=== PATIENT | male | born 1985 | race Caucasian/White ===

== ENCOUNTER 2016-08-04 15:08 | Emergency (ER) | payer OTHER, SELFPAY ==
--- NOTE | 2016-08-04 15:32 | EDDOCDS ---
Physician Documentation [facility] Name: Fidel Ellis Age: 31 yrs Sex: Male : 1985 Arrival Date: 08/04/2016 Time: 15:08 Bed TR8 Private MD: Cassius Cao M Disposition: 08/04/16 15:24 Discharged to Home/Self Care. Impression: Acute bronchitis. - Condition is Stable. - Discharge Instructions: Acute Bronchitis. - Prescriptions for acetaminophen 500 mg Oral capsule - take 1 capsule by ORAL route every 4-6 hours as needed not to exceed 8 capsules per 24hrs; 30 capsule. Prednisone 20 mg Oral Tablet - take 1 tablet by ORAL route once daily for 5 days; 5 tablet. benzonatate 200 mg Oral Capsule - take 1 capsule by ORAL route 3 times per day As needed; 30 capsule. - Work Release Form - 3 day, Medication Reconciliation form. - Follow up: Emergency Department; When: As needed; Reason: Worsening of conditions. Follow up: Cassius Cao; When: Call to arrange an appointment; Reason: Wound/Symptom Recheck, Recheck today's complaints, Worsening of conditions, Continuance of care. - Problem is new. - Symptoms are unchanged. Historical: - Allergies: Aspirin; - Home Meds: 1. ibuprofen 800 mg Oral tab 1 tab 3 times per day as needed (Last dose: 08/04/2016 08:00) - PMHx: ADD; - PSHx: left foot and ankle surgery; - Social history: Smoking status: Patient states was never smoker of tobacco. No barriers to communication noted, The patient speaks fluent [place]rugu[place], Speaks appropriately for age. - Family history: Not pertinent. - : The pt / caregiver states he / she is not on anticoagulants. Home medication list is obtained from the patient. - Exposure Risk Screening:: None identified. Vital Signs: 08/04 15:09 BP 136 / 64; Pulse 84; Resp 18; Temp 99.4(O); Pulse Ox 97% on R/A; Weight 102.06 kg / elp 225 lbs (R); Height 5 ft. 10 in. (177.80 cm) (R); 15:09 Body Mass Index 32.28 (102.06 kg, 177.80 cm) elp Signatures: Enrique Mae RN RN mlb1 Lou Cantor,RN RN rs3 Yuko, Chan, PA-C PA-C cc10 MTDD
--- NOTE | 2016-08-04 15:32 | EDDOCDS ---
Nurse's Notes [facility] Name: Fidel Ellis Age: 31 yrs Sex: Male : 1985 Arrival Date: 08/04/2016 Time: 15:08 Bed TR8 Private MD: Cassius Cao M Diagnosis: Acute bronchitis Presentation: 08/04 15:10 Presenting complaint: Patient states: Fever and cough began last night. Adult Sepsis mlb1 Screening: The patient does not have new or worsening altered mentation. Patient's respiratory rate is less than 22. Systolic blood pressure is greater than 100. Patient has a qSOFA score of 0- Negative Sepsis Screen. Suicide/Homicide risk assessment- the patient denies having any suicidal and/or homicidal ideations and does not present with any other emotional, behavioral or mental health complaints. Status: Patient is not a facility service manager or dependent. Transition of care: patient was not received from another setting of care. 15:10 Acuity: TAJ Level 4 mlb1 15:10 Method Of Arrival: Walkin/Carried/Asstd mlb1 Triage Assessment: 15:11 General: Appears in no apparent distress, comfortable, Behavior is appropriate for age, mlb1 cooperative. Pain: Denies pain. HIV screening NA for this visit Offered previously. Respiratory: Reports cough that is non-productive. Historical: - Allergies: Aspirin; - Home Meds: 1. ibuprofen 800 mg Oral tab 1 tab 3 times per day as needed (Last dose: 08/04/2016 08:00) - PMHx: ADD; - PSHx: left foot and ankle surgery; - Social history: Smoking status: Patient states was never smoker of tobacco. No barriers to communication noted, The patient speaks fluent [place]aguayan, Speaks appropriately for age. - Family history: Not pertinent. - : The pt / caregiver states he / she is not on anticoagulants. Home medication list is obtained from the patient. - Exposure Risk Screening:: None identified. Screenin:30 Screening information is obtained from the patient. Fall risk: No risks identified. rs3 Assistance ADL's: requires no assistance with activities of daily living. Abuse/DV Screen: The patient / caregiver reports he/she is: not in a situation that causes fear, pain or injury. Nutritional screening: No deficits noted. Advance Directives: Currently, there is no health care proxy. There is no active DNR order. home support is adequate. Assessment: 15:30 General: Appears in no apparent distress, Behavior is appropriate for age, cooperative. rs3 Pain: Denies pain. Neurological: Level of Consciousness is awake, alert. EENT: Reports nasal congestion nasal discharge that is watery. Respiratory: Airway is patent Respiratory effort is even, unlabored, Respiratory pattern is regular, symmetrical. Derm: Skin is pink, warm & dry. Vital Signs: 15:09 BP 136 / 64; Pulse 84; Resp 18; Temp 99.4(O); Pulse Ox 97% on R/A; Weight 102.06 kg elp (R); Height 5 ft. 10 in. (177.80 cm) (R); 15:09 Body Mass Index 32.28 (102.06 kg, 177.80 cm) elp Vitals: 15:09 Log In Time: August 04, 2016 at 15:07. elp ED Course: 15:09 Patient visited by Amy Del Valle PCA. elp 15:09 Cassius Cao is Private Physician. elp 15:09 Patient moved to Waiting elp 15:09 Patient moved to Pre RCE elp 15:10 Patient visited by Amy Del Valle PCA. elp 15:10 Patient visited by Enrique Mae, BONNIE. mlb1 15:11 Triage Initiated mlb1 15:12 Patient visited by Enrique Mae, BONNIE. mlb1 15:12 Patient moved to Triage 1 mlb1 15:14 Chan Huntley PA-C is [facility]. cc10 15:14 Radha Arevalo MD is Attending Physician. cc10 15:18 Patient visited by Chan Huntley PA-C. cc10 15:18 Patient visited by Chan Huntley PA-C. cc10 15:23 Cassius Cao is Referral Physician. cc10 15:29 Patient moved to TR8 rs3 15:31 The patient / caregiver is instructed regarding the plan of care and ED course. rs3 15:31 No IV's were initiated during this patient's visit. No procedures done that require rs3 assistance. Order Results: There are currently no results for this order. Outcome: 15:24 Discharge ordered by Provider. cc10 15:30 Discharge Assessment: patient administered narcotics - no. The following High Risk rs3 Discharge criteria are identified: None. Discharged to home with family. Condition: stable. Discharge instructions given to patient, Instructed on discharge instructions, follow up and referral plans. medication usage, Demonstrated understanding of instructions, medications, Pt was receptive of discharge instructions/ teaching. Prescriptions given X 3. No special radiology studies were completed. Property :Personal belongings accompany Pt. 15:31 Patient left the ED. rs3 Signatures: Enrique Mae RN RN mlb1 Lou Cantor RN RN rs3 Amy Del Valle, STORAGE BATTERY CHARGER STORAGE BATTERY CHARGER elp Chan Huntley, PA-C PA-C cc10 MTDD
--- NOTE | 2016-08-06 16:32 | EDDOCDS ---
Nurse's Notes [facility] Name: Fidel Ellis Age: 31 yrs Sex: Male : 1985 Arrival Date: 08/04/2016 Time: 15:08 Bed TR8 Private MD: Cassius Cao M Diagnosis: Acute bronchitis Presentation: 08/04 15:10 Presenting complaint: Patient states: Fever and cough began last night. Adult Sepsis mlb1 Screening: The patient does not have new or worsening altered mentation. Patient's respiratory rate is less than 22. Systolic blood pressure is greater than 100. Patient has a qSOFA score of 0- Negative Sepsis Screen. Suicide/Homicide risk assessment- the patient denies having any suicidal and/or homicidal ideations and does not present with any other emotional, behavioral or mental health complaints. Status: Patient is not a client service manager or dependent. Transition of care: patient was not received from another setting of care. 15:10 Acuity: TAJ Level 4 mlb1 15:10 Method Of Arrival: Walkin/Carried/Asstd mlb1 Triage Assessment: 15:11 General: Appears in no apparent distress, comfortable, Behavior is appropriate for age, mlb1 cooperative. Pain: Denies pain. HIV screening NA for this visit Offered previously. Respiratory: Reports cough that is non-productive. Historical: - Allergies: Aspirin; - Home Meds: 1. ibuprofen 800 mg Oral tab 1 tab 3 times per day as needed (Last dose: 08/04/2016 08:00) - PMHx: ADD; - PSHx: left foot and ankle surgery; - Social history: Smoking status: Patient states was never smoker of tobacco. No barriers to communication noted, The patient speaks fluent [place] Verde[place], Speaks appropriately for age. - Family history: Not pertinent. - : The pt / caregiver states he / she is not on anticoagulants. Home medication list is obtained from the patient. - Exposure Risk Screening:: None identified. Screenin:30 Screening information is obtained from the patient. Fall risk: No risks identified. rs3 Assistance ADL's: requires no assistance with activities of daily living. Abuse/DV Screen: The patient / caregiver reports he/she is: not in a situation that causes fear, pain or injury. Nutritional screening: No deficits noted. Advance Directives: Currently, there is no health care proxy. There is no active DNR order. home support is adequate. Assessment: 15:30 General: Appears in no apparent distress, Behavior is appropriate for age, cooperative. rs3 Pain: Denies pain. Neurological: Level of Consciousness is awake, alert. EENT: Reports nasal congestion nasal discharge that is watery. Respiratory: Airway is patent Respiratory effort is even, unlabored, Respiratory pattern is regular, symmetrical. Derm: Skin is pink, warm & dry. Vital Signs: 15:09 BP 136 / 64; Pulse 84; Resp 18; Temp 99.4(O); Pulse Ox 97% on R/A; Weight 102.06 kg elp (R); Height 5 ft. 10 in. (177.80 cm) (R); 15:09 Body Mass Index 32.28 (102.06 kg, 177.80 cm) el Vitals: 15:09 Log In Time: August 04, 2016 at 15:07. elp ED Course: 15:09 Patient visited by Amy Del Valle PCA. elp 15:09 Cassius Cao is Private Physician. elp 15:09 Patient moved to Waiting elp 15:09 Patient moved to Pre RCE elp 15:10 Patient visited by Amy Del Valle PCA. elp 15:10 Patient visited by Enrique Mae, BONNIE. mlb1 15:11 Triage Initiated mlb1 15:12 Patient visited by Enrique Mae, BONNIE. mlb1 15:12 Patient moved to Triage 1 mlb1 15:14 [facility] cc[facility] 15:14 Radah Arevalo MD is Attending Physician. cc10 15:18 Patient visited by Chan Huntley PA-C. cc10 15:18 Patient visited by Chan Huntley PA-C. cc10 15:23 Cassius Cao is Referral Physician. cc10 15:29 Patient moved to TR8 rs3 15:31 The patient / caregiver is instructed regarding the plan of care and ED course. rs3 15:31 No IV's were initiated during this patient's visit. No procedures done that require rs3 assistance. 21:58 T-Sheet-- Draft Copy was scanned into [employer] and attached to record. klr Order Results: There are currently no results for this order. Outcome: 15:24 Discharge ordered by Provider. cc10 15:30 Discharge Assessment: patient administered narcotics - no. The following High Risk rs3 Discharge criteria are identified: None. Discharged to home with family. Condition: stable. Discharge instructions given to patient, Instructed on discharge instructions, follow up and referral plans. medication usage, Demonstrated understanding of instructions, medications, Pt was receptive of discharge instructions/ teaching. Prescriptions given X 3. No special radiology studies were completed. Property :Personal belongings accompany Pt. 15:31 Patient left the ED. rs3 Signatures: Enrique Mae RN RN mlb1 Lou CantorRN RN rs3 Ivon, Amy, ORGANIC SEARCH LEAD ORGANIC SEARCH LEAD elp Chan Huntley PA-C PA-C cc10 Ame Gatica Chart Complete MTDMisa
--- NOTE | 2016-08-06 16:32 | EDDOCDS ---
Physician Documentation [facility] Name: iFdel Ellis Age: 31 yrs Sex: Male : 1985 Arrival Date: 08/04/2016 Time: 15:08 Bed TR8 Private MD: Cassius Cao M Disposition: 08/04/16 15:24 Discharged to Home/Self Care. Impression: Acute bronchitis. - Condition is Stable. - Discharge Instructions: Acute Bronchitis. - Prescriptions for acetaminophen 500 mg Oral capsule - take 1 capsule by ORAL route every 4-6 hours as needed not to exceed 8 capsules per 24hrs; 30 capsule. Prednisone 20 mg Oral Tablet - take 1 tablet by ORAL route once daily for 5 days; 5 tablet. benzonatate 200 mg Oral Capsule - take 1 capsule by ORAL route 3 times per day As needed; 30 capsule. - Work Release Form - 3 day, Medication Reconciliation form. - Follow up: Emergency Department; When: As needed; Reason: Worsening of conditions. Follow up: Cassius Cao; When: Call to arrange an appointment; Reason: Wound/Symptom Recheck, Recheck today's complaints, Worsening of conditions, Continuance of care. - Problem is new. - Symptoms are unchanged. Historical: - Allergies: Aspirin; - Home Meds: 1. ibuprofen 800 mg Oral tab 1 tab 3 times per day as needed (Last dose: 08/04/2016 08:00) - PMHx: ADD; - PSHx: left foot and ankle surgery; - Social history: Smoking status: Patient states was never smoker of tobacco. No barriers to communication noted, The patient speaks fluent [place], Speaks appropriately for age. - Family history: Not pertinent. - : The pt / caregiver states he / she is not on anticoagulants. Home medication list is obtained from the patient. - Exposure Risk Screening:: None identified. Vital Signs: 08/04 15:09 BP 136 / 64; Pulse 84; Resp 18; Temp 99.4(O); Pulse Ox 97% on R/A; Weight 102.06 kg / elp 225 lbs (R); Height 5 ft. 10 in. (177.80 cm) (R); 15:09 Body Mass Index 32.28 (102.06 kg, 177.80 cm) elp MDM: 21:58 T-Sheet-- Draft Copy was scanned into [employer] and attached to record. klr Signatures: Enrique Mae RN RN mlb1 Lou CantorRN RN rs3 Chan Huntley PA-C PA-C cc10 Ame Gatica The chart was reviewed and I authenticate all verbal orders and agree with the evaluation and treatment provided.Attachments: 21:58 T-Sheet-- Draft Copy klr Chart Complete MTDD
--- NOTE | 2016-08-06 16:32 | EDDOCDS ---
Physician Documentation [facility] Name: Fidel Ellis Age: 31 yrs Sex: Male : 1985 Arrival Date: 08/04/2016 Time: 15:08 Bed TR8 Private MD: Cassius Cao M Disposition: 08/04/16 15:24 Discharged to Home/Self Care. Impression: Acute bronchitis. - Condition is Stable. - Discharge Instructions: Acute Bronchitis. - Prescriptions for acetaminophen 500 mg Oral capsule - take 1 capsule by ORAL route every 4-6 hours as needed not to exceed 8 capsules per 24hrs; 30 capsule. Prednisone 20 mg Oral Tablet - take 1 tablet by ORAL route once daily for 5 days; 5 tablet. benzonatate 200 mg Oral Capsule - take 1 capsule by ORAL route 3 times per day As needed; 30 capsule. - Work Release Form - 3 day, Medication Reconciliation form. - Follow up: Emergency Department; When: As needed; Reason: Worsening of conditions. Follow up: Cassius Cao; When: Call to arrange an appointment; Reason: Wound/Symptom Recheck, Recheck today's complaints, Worsening of conditions, Continuance of care. - Problem is new. - Symptoms are unchanged. Historical: - Allergies: Aspirin; - Home Meds: 1. ibuprofen 800 mg Oral tab 1 tab 3 times per day as needed (Last dose: 08/04/2016 08:00) - PMHx: ADD; - PSHx: left foot and ankle surgery; - Social history: Smoking status: Patient states was never smoker of tobacco. No barriers to communication noted, The patient speaks fluent Fijian, Speaks appropriately for age. - Family history: Not pertinent. - : The pt / caregiver states he / she is not on anticoagulants. Home medication list is obtained from the patient. - Exposure Risk Screening:: None identified. Vital Signs: 08/04 15:09 BP 136 / 64; Pulse 84; Resp 18; Temp 99.4(O); Pulse Ox 97% on R/A; Weight 102.06 kg / elp 225 lbs (R); Height 5 ft. 10 in. (177.80 cm) (R); 15:09 Body Mass Index 32.28 (102.06 kg, 177.80 cm) elp MDM: 21:58 T-Sheet-- Draft Copy was scanned into [employer] and attached to record. klr Signatures: Enrique Mae RN RN mlb1 Lou CantorRN RN rs3 Chan Huntley PA-C PA-C cc10 Ame Gatica The chart was reviewed and I authenticate all verbal orders and agree with the evaluation and treatment provided.Attachments: 21:58 T-Sheet-- Draft Copy klr Chart Complete MTDD
== END 2016-08-04 15:31 | disposition home or self-care (01) ==
LOC: M ED 15:08
DX: J20.9 Acute bronchitis, unspecified (principal); B34.9 Viral infection, unspecified; F90.9 Attention-deficit hyperactivity disorder, unspecified type; Z88.6 Allergy status to analgesic agent

== ENCOUNTER 2016-11-17 20:10 | Emergency (ER) | payer OTHER, SELFPAY ==
[~2016-11-17] VITALS: Ht 177.8 cm; Wt 102.1 kg
[2016-11-17] MEDS ORDERED: WELL100T2 PO (20:24)
[2016-11-17] MEDS ORDERED: ADACEL/BOOSTRIX VACCINE (DIPHTH/PERTUSS/ACELL/TETANUS)0.5ML SYR (90715) IM ONE (21:30)
[2016-11-17 21:48] VITALS: BP 134/71
[2016-11-17] MEDS ORDERED: AUGM875T27 PO (21:50)
[2016-11-17] MEDS ORDERED: AUGMENTIN 875 MG TAB PO ONE (22:00)
== END 2016-11-17 22:00 | disposition home or self-care (01) ==
LOC: M ED 21:34
DX: S61.412A Laceration without foreign body of left hand, initial encounter (principal); W25.XXXA Contact with sharp glass, initial encounter; Y92.89 Other specified places as the place of occurrence of the external cause; Y93.89 Activity, other specified; Y99.0 Civilian activity done for income or pay; Z79.899 Other long term (current) drug therapy; Z88.6 Allergy status to analgesic agent

== ENCOUNTER → 2016-11-30 | Outpatient (CLI) | payer OTHER ==
[~2016-11-30] MED LIST: AUGM875T27 PO; WELL100T2 PO
[2016-11-30 11:11] LABS: % NORMAL FORMS < 4 % (>=4); IMMOTILITY 96 %; NON PROGRESSIVE MOTILITY (c) 4 %; PROGRESSIVE MOTILITY (a) 0 % (>=32); SPERM# 15.5 M/Ejac (33-46); TOTAL MOTILITY 4 % (>=40); TOTAL PROGRESSIVE SPERM 0 M/Ejac.
[2016-11-30 11:13] LABS: TOTAL FUNCTIONAL 0 M/Ejac.
[2016-11-30 12:40] LABS: ESTRADIOL 20.6 PG/ML (<39.8); FOLLICLE STIMULATING HORMONE 5.2 mIU/mL (1.4-18.1); LUTEINIZING HORMONE 4.8 mIU/mL (1.5-9.3); PROLACTIN 12.3 NG/ML (2.1-17.7)
== END ==
LOC: M LAB 08:11
PROVIDERS: ATTEND Nurse Practitioner Women's Health
DX: N46.9 Male infertility, unspecified (principal)

== ENCOUNTER → 2016-12-13 | Outpatient (CLI) | payer OTHER ==
--- NOTE | 2016-12-14 01:29 | REP ---
Clinical: Pain . Technique: AP, lateral, bilateral oblique views left ankle . Findings: No acute fracture or dislocation. Skeletal structures and joint spaces are intact and normal. Ankle mortise appears stable. No subcutaneous emphysema or radiodense foreign body. Impression: Normal left ankle radiograph series. Signed by Franklin Gray MD 12/14/2016 01:21 A
--- NOTE | 2016-12-14 01:34 | REP ---
Clinical: Pain. Technique: AP, lateral, bilateral oblique sunrise views of the left knee. Findings: Degenerative changes include increased sclerosis to the medial tibial plateau with mild joint space narrowing at and associated marginal osteophyte/spurring. Remainder examination appears normal for age. No acute fracture dislocation. No effusion. Impression: Early medial compartment arthritic degenerative changes. Signed by Franklin Gray MD 12/14/2016 01:25 A
== END ==
LOC: M SMT 14:27
PROVIDERS: ATTEND Physician Assistant
DX: M25.572 Pain in left ankle and joints of left foot (principal); M25.562 Pain in left knee

== ENCOUNTER 2017-01-04 10:28 | Emergency (ER) | payer OTHER ==
[~2017-01-04] VITALS: Ht 177.8 cm; Wt 101.7 kg
[2017-01-04 10:28] VITALS: BP 127/67
[~2017-01-04 10:28] MED LIST changes: -AUGM875T27 PO; +AUGM875T28 PO
[2017-01-04] MEDS ORDERED: BUPR15TA PO (10:35)
[2017-01-04] MEDS ORDERED: NAPROXEN 250 MG TAB PO ONE (11:00)
[2017-01-04] MEDS ORDERED: NAPR500T PO (12:00)
[2017-01-04] MEDS ORDERED: CYCL10TA PO (12:00)
--- NOTE | 2017-01-04 12:10 | REP ---
LUMBOSACRAL SPINE: Five views of lumbosacral spine are performed. There is no compression fracture or malalignment with normal lumbar lordosis. There is no spondylolysis or spondylolisthesis. There is mild spurring at L3. There is mild disc space narrowing at L2-3 and L5-S1 with sclerosis at the posterior facet joints of L4-5 and L5-S1. The posterior elements are intact. IMPRESSION: Mild degenerative changes without fracture or dislocation. Signed by Ahmet Fowler MD 01/04/2017 05:23 P
--- NOTE | 2017-01-04 12:11 | REP ---
RIGHT SHOULDER: Three views of the right shoulder are performed and demonstrate no fracture, dislocation, or intrinsic bone disease. Oval well defined sclerotic area in the right second rib is consistent with a bone island. IMPRESSION: No significant abnormality. Signed by Ahmet Fowler MD 01/04/2017 05:24 P
== END 2017-01-04 12:15 | disposition home or self-care (01) ==
LOC: M ED 10:28
DX: M25.511 Pain in right shoulder (principal); M54.5 Low back pain; M51.37 Other intervertebral disc degeneration, lumbosacral region; Z79.899 Other long term (current) drug therapy; Z88.6 Allergy status to analgesic agent

== ENCOUNTER → 2017-02-14 | Outpatient (CLI) | payer OTHER ==
[~2017-02-14] MED LIST changes: +BUPR15TA PO; +CYCL10TA PO; +NAPR500T PO
--- NOTE | 2017-02-19 14:15 | SLEEPHOME ---
DATE OF PROCEDURE: 02/14/2017 REFERRING PHYSICIAN: VIDA Matos INTERPRETATION: Diagnostic home sleep testing was performed due to concern for the obstructive sleep apnea syndrome in this patient with a history of excessive somnolence. For testing a NOX-T3 respiratory monitoring device was used. Continuous record was made of pulse, oxygen saturation, air flow, chest and abdominal strain and body position. 10 hours and 59 minutes of data were reviewed. Of these 6 hours and 57 minutes were marked as time in bed. During the interval marked time in bed, there were 277 respiratory events identified of 10 seconds in duration or greater for a respiratory event index of 39.8. The events were primarily obstructive based on pulse rate of 60, pulse rate range 47-98. Baseline saturation 93%. Lowest oxygen saturation 70%. Testing was performed in both supine and non-supine positions. IMPRESSION: Abnormal home sleep testing with repetitive respiratory events and oxygen desaturations to 70% with a respiratory index of 39.8 is consistent with severe obstructive sleep apnea syndrome. RECOMMENDATION: The patient should be encouraged to undergo formal sleep evaluation and in laboratory pressure titration.
== END ==
LOC: M SLEEP HO 11:26
PROVIDERS: ATTEND Nurse Practitioner Adult Health
DX: G47.30 Sleep apnea, unspecified (principal)

== ENCOUNTER → 2017-03-08 | Outpatient (CLI) | payer OTHER | LOC: M LAB 09:28 | PROVIDERS: ATTEND Urology | DX: N46.9 Male infertility, unspecified (principal) ==

== ENCOUNTER → 2017-07-05 | Outpatient (REF) | payer OTHER ==
[2017-07-05 20:27] LABS: HEPATITIS B SURFACE ANTIGEN NEGATIVE (NEGATIVE)
[2017-07-05 20:54] LABS: HEPATITIS B CORE ANTIBODY IGM NEGATIVE (NEGATIVE)
[2017-07-05 20:54] LABS: HEPATITIS C VIRUS ABY INDEX 0.1 INDEX (<0.8)
[2017-07-05 20:55] LABS: HIV 1&2 SCREEN CENTAUR NEGATIVE (NEGATIVE)
[2017-07-05 20:56] LABS: HEPATITIS A ANTIBODY IGM NEGATIVE (NEGATIVE)
[2017-07-05 21:48] LABS: CHLAMYDIA DNA AMPLIFICATION NEGATIVE (NEGATIVE); GC DNA AMPLIFICATION NEGATIVE (NEGATIVE)
== END ==
LOC: M SFHCPLAZ 15:13
DX: Z72.51 High risk heterosexual behavior (principal); F90.9 Attention-deficit hyperactivity disorder, unspecified type

== ENCOUNTER → 2017-07-11 | Outpatient (REF) | payer OTHER ==
[2017-07-11 10:36] LABS: #IMMOTILE SPERM COUNTED 14; #MOTILE SPERM COUNTED 2; % MOTILITY 13 (> 40%); SEMEN APPEARANCE OPAQUE (OPAQUE); SEMEN VISCOSITY LIQUID (LIQUID); SEMEN VOLUME 1.3 ML (4.0-5.0); SEMEN WBC >1 M/ml (<=1 M/ml); SEMEN pH 7.5 (7.0-8.0); SPERM ABNORMAL FORMS WBC'S NOTED; SPERM CONCENTRATION 8 M/ml (> 15 M/ml); TOTAL # SPERM COUNTED 16 M/ml
== END ==
LOC: M SMT 10:29
DX: N46.8 Other male infertility (principal)

== ENCOUNTER → 2017-08-09 | Outpatient (CLI) | payer OTHER | LOC: M RAD 14:50 | DX: R06.09 Other forms of dyspnea (principal) | CPT/HCPCS: 71046 ==

== ENCOUNTER → 2017-09-03 | Outpatient (CLI) | payer OTHER | LOC: M CARPUL 08:37 | DX: R06.09 Other forms of dyspnea (principal) ==

== ENCOUNTER → 2017-09-09 | Outpatient (CLI) | payer OTHER | LOC: M RAD 08:59 | DX: M25.521 Pain in right elbow (principal) | CPT/HCPCS: 73080 ==

== ENCOUNTER → 2017-09-13 | Outpatient (REF) | payer OTHER ==
[2017-09-13 14:29] LABS: CHLAMYDIA DNA AMPLIFICATION NEGATIVE (NEGATIVE); GC DNA AMPLIFICATION NEGATIVE (NEGATIVE)
== END ==
LOC: M SFHCPLAZ 11:33
DX: Z20.2 Contact with and (suspected) exposure to infections with a predominantly sexual mode of transmission (principal)

== ENCOUNTER 2018-01-08 19:58 | Emergency (ER) | payer OTHER | END 2018-01-09 01:45 | disposition home or self-care (01) | LOC: M ED 19:58 | DX: R14.2 Eructation (principal); F33.9 Major depressive disorder, recurrent, unspecified; F90.9 Attention-deficit hyperactivity disorder, unspecified type; Z79.899 Other long term (current) drug therapy; Z88.8 Allergy status to other drugs, medicaments and biological substances | CPT/HCPCS: 99283 ==

== ENCOUNTER 2018-03-30 14:48 | Emergency (ER) | payer MEDICAID, SELFPAY, OTHER ==
[2018-03-30] MEDS: GI COCKTAIL 50ML BTL(HYOSCYAMINE/MAALOX/LIDOCAINE VISCOUS)(1:3:1) PO ×3 (15:46)
[2018-03-30] MEDS: PANTOPRAZOLE 40MG INJ (PROTONIX) (C9113) IV ×3 (15:46)
[2018-03-30] MEDS: NS 1,000 ML IV ×3 (15:47)
[2018-03-30] MEDS: ONDANSETRON 4MG/2ML VIAL (J2405) IV ×3 (15:50)
[2018-03-30] MEDS ORDERED: ONDANSETRON 4MG/2ML VIAL (J2405) As Ordered ×3 (15:50)
[2018-03-30 15:57] LABS: BASO # 0.1 10^3/uL (0.0-0.2); BASO % 0.6 % (0.0-1.0); EOS # 0.3 10^3/uL (0.0-0.50); EOS % 2.9 % (0.0-3.0); HEMOGLOBIN 14.5 g/dl (13.5-17.5); IMMATURE GRANULOCYTE % 0.3 % (0-3.0); LYMPH % 19.9 % (24.0-44.0); MEAN CORPUSCULAR HEMOGLOBIN 27.5 pg (27.0-33.0); MEAN CORPUSCULAR HGB CONC 33.7 g/dl (32.0-36.5); MEAN CORPUSCULAR VOLUME 81.6 fl (80.0-96.0); MONO # 0.8 10^3/uL (0.0-0.8); MONO % 7.9 % (0.0-5.0); NEUTROPHILS # 6.8 10^3/uL (1.8-7.7); NEUTROPHILS % 68.4 % (36.0-66.0); PLATELET COUNT, AUTOMATED 243 10^3/uL (150-450); RED BLOOD COUNT 5.27 10^6/uL (4.30-6.10); RED CELL DISTRIBUTION WIDTH 12.8 % (11.5-14.5); WHITE BLOOD COUNT 9.9 10^3/uL (4.0-10.0)
[2018-03-30 16:00] LABS: APPEARANCE, URINE CLEAR (CLEAR); BACTERIA, URINE AUTO NEGATIVE (NEGATIVE); BILIRUBIN, URINE AUTO NEGATIVE (NEGATIVE); BLOOD, URINE BLOOD NEGATIVE (NEGATIVE); COLOR, URINE YELLOW (YELLOW); GLUCOSE, URINE (UA) AUTO NEGATIVE (NEGATIVE); KETONE, URINE AUTO NEGATIVE (NEGATIVE); LEUKOCYTE ESTERASE, URINE AUTO NEGATIVE (NEGATIVE); MUCUS, URINE SMALL (NEGATIVE); NITRITE, URINE AUTO NEGATIVE (NEGATIVE); PROTEIN, URINE AUTO NEGATIVE (NEGATIVE); RBC, URINE AUTO 1 /HPF (0-3); SPECIFIC GRAVITY URINE AUTO 1.014 (1.002-1.035); SQUAMOUS EPITHELIAL CELL UR AU 0 /HPF (0-6); UROBILINOGEN, URINE AUTO 0.2 mg/dL (0.0-2.0); WBC, URINE AUTO 0 /HPF (0-3)
[2018-03-30 16:24] LABS: ALKALINE PHOSPHATASE 93 U/L (45-117); ALT/SGPT 54 U/L (12-78); ANION GAP 8 MEQ/L (8-16); AST/SGOT 30 U/L (7-37); BILIRUBIN,TOTAL 0.4 MG/DL (0.2-1.0); BLOOD UREA NITROGEN 15 MG/DL (7-18); CARBON DIOXIDE LEVEL 28 MEQ/L (21-32); CHLORIDE LEVEL 104 MEQ/L (98-107); CREATININE FOR GFR 0.81 MG/DL (0.70-1.30); GLOMERULAR FILTRATION RATE > 60.0 (>60); GLUCOSE, FASTING 88 MG/DL (70-100); LIPASE 191 U/L (73-393); POTASSIUM SERUM 3.8 MEQ/L (3.5-5.1); SODIUM LEVEL 140 MEQ/L (136-145)
[2018-03-30] MEDS ORDERED: ISOVUE-370 76% 100ML VIAL (Q9967) As Ordered ×3 (17:01)
== END 2018-03-30 18:29 | disposition home or self-care (01) ==
LOC: M ED 14:48
DX: K29.70 Gastritis, unspecified, without bleeding (principal); R14.2 Eructation; K76.0 Fatty (change of) liver, not elsewhere classified; R11.0 Nausea; Z88.6 Allergy status to analgesic agent
CPT/HCPCS: C9113

== ENCOUNTER 2018-05-25 17:28 | Emergency (ER) | payer OTHER, MEDICAID, SELFPAY ==
[2018-05-25] MEDS: IPRATROPIUM 0.5MG/ALBUTEROL 2.5MG INH SOL UD 3ML (DUONEB)(J7620) NEB (17:45)
[2018-05-25 18:01] LABS: VENOUS BASE EXCESS -4.6 (-2.0-2.0); VENOUS HCO3 19.7 MEQ/L (23.0-27.0); VENOUS O2 SATURATION 78.8 % (60.0-80.0); VENOUS PARTIAL PRESSURE CO2 34.2 mmHg (38.0-50.0); VENOUS PARTIAL PRESSURE O2 44.5 mmHg (30.0-50.0); VENOUS PH 7.379 UNITS (7.330-7.430); VENOUS STANDARD HCO3 20.3 MEQ/L; VENOUS TOTAL CO2 20.8 MEQ/L (24.0-28.0)
[2018-05-25 18:03] LABS: BASO # 0.1 10^3/uL (0.0-0.2); BASO % 0.5 % (0.0-1.0); EOS # 0.4 10^3/uL (0.0-0.50); EOS % 4.6 % (0.0-3.0); HEMATOCRIT 43.8 % (42.0-52.0); HEMOGLOBIN 14.8 g/dl (13.5-17.5); IMMATURE GRANULOCYTE % 0.4 % (0-3.0); LYMPH # 1.7 10^3/uL (1.5-4.5); LYMPH % 18.6 % (24.0-44.0); MEAN CORPUSCULAR HEMOGLOBIN 27.7 pg (27.0-33.0); MEAN CORPUSCULAR HGB CONC 33.8 g/dl (32.0-36.5); MEAN CORPUSCULAR VOLUME 81.9 fl (80.0-96.0); MONO # 0.8 10^3/uL (0.0-0.8); MONO % 8.2 % (0.0-5.0); NEUTROPHILS # 6.2 10^3/uL (1.8-7.7); NEUTROPHILS % 67.7 % (36.0-66.0); PLATELET COUNT, AUTOMATED 271 10^3/uL (150-450); RED BLOOD COUNT 5.35 10^6/uL (4.30-6.10); RED CELL DISTRIBUTION WIDTH 12.9 % (11.5-14.5); WHITE BLOOD COUNT 9.1 10^3/uL (4.0-10.0)
== END 2018-05-25 18:38 | disposition home or self-care (01) ==
LOC: M ED 17:28
DX: J45.909 Unspecified asthma, uncomplicated (principal); Z88.6 Allergy status to analgesic agent
CPT/HCPCS: 71046

== ENCOUNTER 2018-06-02 20:33 | Emergency (ER) | payer OTHER ==
[2018-06-02 22:25] LABS: BASO # 0.1 10^3/uL (0.0-0.2); BASO % 0.5 % (0.0-1.0); EOS # 0.2 10^3/uL (0.0-0.50); EOS % 1.7 % (0.0-3.0); HEMATOCRIT 42.5 % (42.0-52.0); HEMOGLOBIN 14.2 g/dl (13.5-17.5); IMMATURE GRANULOCYTE % 0.3 % (0-3.0); LYMPH # 1.1 10^3/uL (1.5-4.5); LYMPH % 10.1 % (24.0-44.0); MEAN CORPUSCULAR HEMOGLOBIN 27.5 pg (27.0-33.0); MEAN CORPUSCULAR HGB CONC 33.4 g/dl (32.0-36.5); MEAN CORPUSCULAR VOLUME 82.4 fl (80.0-96.0); MONO # 0.7 10^3/uL (0.0-0.8); MONO % 6.8 % (0.0-5.0); NEUTROPHILS # 8.8 10^3/uL (1.8-7.7); NEUTROPHILS % 80.6 % (36.0-66.0); PLATELET COUNT, AUTOMATED 276 10^3/uL (150-450); RED BLOOD COUNT 5.16 10^6/uL (4.30-6.10); RED CELL DISTRIBUTION WIDTH 12.7 % (11.5-14.5); WHITE BLOOD COUNT 10.9 10^3/uL (4.0-10.0)
[2018-06-02 22:48] LABS: ANION GAP 6 MEQ/L (8-16); BLOOD UREA NITROGEN 10 MG/DL (7-18); CALCIUM LEVEL 9.2 MG/DL (8.5-10.1); CARBON DIOXIDE LEVEL 28 MEQ/L (21-32); CHLORIDE LEVEL 106 MEQ/L (98-107); CPK CREATINE PHOSPHOKINASE 209 U/L (39-308); CREATININE FOR GFR 0.88 MG/DL (0.70-1.30); GLOMERULAR FILTRATION RATE > 60.0 (>60); GLUCOSE, FASTING 95 MG/DL (70-100); MB/CK RELATIVE INDEX 1.53 (< OR =4); SODIUM LEVEL 140 MEQ/L (136-145); TROPONIN I < 0.02 NG/ML (< 0.10)
== END 2018-06-02 23:20 | disposition home or self-care (01) ==
LOC: M ED 20:33
DX: R07.89 Other chest pain (principal); R06.02 Shortness of breath
CPT/HCPCS: 71046

== ENCOUNTER → 2018-06-25 | Outpatient (CLI) | payer OTHER ==
[~2018-06-25] MED LIST changes: +CARA1TAB6 PO; +NAPR-50 PO; -NAPR500T PO; +OMEP10CASR PO; +PROAAER10 INH; +SIME40TA PO; +SOMA250T PO; +ZOFR4TAB14 PO
[2018-06-25 11:06] LABS: ESTRADIOL 33.9 PG/ML (<39.8); FOLLICLE STIMULATING HORMONE 5.3 mIU/mL (1.4-18.1); PROLACTIN 10.4 NG/ML (2.1-17.7)
[2018-06-27 00:36] LABS: SEX HORMONE BINDING GLOBULIN 33.7 nmol/L (16.5-55.9); TESTOSTERONE FREE (DIRECT) 15.6 pg/mL (8.7-25.1)
== END ==
LOC: M LAB 10:00
PROVIDERS: ATTEND Nurse Practitioner Women's Health
DX: N46.9 Male infertility, unspecified (principal)

== ENCOUNTER → 2018-07-02 | Outpatient (REF) | payer OTHER ==
[2018-07-02 10:47] LABS: SEMEN APPEARANCE OPAQUE (OPAQUE); SEMEN VISCOSITY LIQUID (LIQUID); SEMEN VOLUME 0.9 ml (4.0-5.0); SPERM CONCENTRATION 49.6 M/ml (>=15.0); WBC CONCENTRATION <=1 M/ml (<=1 M/ml)
== END ==
LOC: M SMT 10:36
PROVIDERS: ATTEND Nurse Practitioner Women's Health
DX: N46.9 Male infertility, unspecified (principal)

== ENCOUNTER 2018-08-02 18:38 | Emergency (ER) | payer OTHER ==
[~2018-08-02] VITALS: Ht 177.8 cm; Wt 90.4 kg
[2018-08-02 18:39] VITALS: BP 127/65
[2018-08-02] MEDS ORDERED: ACET500T15 PO (18:46)
[2018-08-02] MEDS ORDERED: ACETAMINOPHEN 325 MG TAB PO ONE (21:00)
--- NOTE | 2018-08-02 21:02 | REPVR ---
EXAM: CT Head Without Contrast EXAM DATE/TIME: 08/02/2018 8:55 PM CLINICAL HISTORY: 33 years old, male; Pain; Headache; Additional info: Head injury 2 weeks ago, now [place] TECHNIQUE: Axial computed tomography images of the head/brain without contrast. All CT scans at this facility use at least one of these dose optimization techniques: automated exposure control; mA and/or kV adjustment per patient size (includes targeted exams where dose is matched to clinical indication); or iterative reconstruction. COMPARISON: No relevant prior studies available. FINDINGS: Brain: Normal. No hemorrhage. No significant white matter disease. No edema. Ventricles: Normal. No ventriculomegaly. Bones/joints: Unremarkable. No acute fracture. Sinuses: Inflammatory changes right sphenoid sinus. Mastoid air cells: Visualized mastoid air cells are unremarkable. No mastoid effusion. Soft tissues: Unremarkable. IMPRESSION: No acute intracranial findings. Electronically signed by: Jama Contreras On 08/02/2018 21:02:02 PM
[2018-08-12] MEDS ORDERED: LANS15CA PO (08:51)
== END 2018-08-02 21:31 | disposition home or self-care (01) ==
LOC: M ED 18:38
DX: R51 Headache (principal); J02.9 Acute pharyngitis, unspecified; Z20.828 Contact with and (suspected) exposure to other viral communicable diseases; K21.9 Gastro-esophageal reflux disease without esophagitis; F90.9 Attention-deficit hyperactivity disorder, unspecified type; F32.9 Major depressive disorder, single episode, unspecified; Z88.8 Allergy status to other drugs, medicaments and biological substances; Z91.81 History of falling

== ENCOUNTER 2018-08-06 09:21 | Emergency (ER) | payer OTHER ==
[~2018-08-06] VITALS: Ht 177.8 cm; Wt 90.0 kg
[~2018-08-06 09:21] MED LIST changes: +ACET500T15 PO
[2018-08-06 10:34] LABS: INFLUENZA A AMPLIFICATION NEGATIVE (NEGATIVE); INFLUENZA B AMPLIFICATION NEGATIVE (NEGATIVE)
[2018-08-06] MEDS ORDERED: AUGM875T28 PO (10:48)
[2018-08-06] MEDS ORDERED: PRED10TA2 PO (10:49)
[2018-08-06] MEDS ORDERED: MAGICMW SSP (10:50)
[2018-08-06 10:54] VITALS: BP 110/59
[2018-08-12] MEDS ORDERED: LANS15CA PO (08:51)
== END 2018-08-06 11:05 | disposition home or self-care (01) ==
LOC: M ED 09:21
DX: J02.9 Acute pharyngitis, unspecified (principal); J32.9 Chronic sinusitis, unspecified; K21.9 Gastro-esophageal reflux disease without esophagitis; F32.9 Major depressive disorder, single episode, unspecified; F90.9 Attention-deficit hyperactivity disorder, unspecified type; Z88.8 Allergy status to other drugs, medicaments and biological substances

== ENCOUNTER 2018-08-26 13:17 | Day surgery (SDC) | payer OTHER ==
[~2018-08-26] VITALS: Ht 177.8 cm; Wt 85.3 kg
[~2018-08-26 13:17] MED LIST changes: +LANS15CA PO; +MAGICMW SSP; +NS 1,000 ML IV ONE; +PRED10TA2 PO
[2018-08-26] MEDS ORDERED: PROPOFOL 200 MG/20 ML VIAL As Ordered ONE (14:05)
[2018-08-26] MEDS ORDERED: LIDOCAINE 2% INJ 100 MG/5 ML SDV (FOR ANES.) As Ordered ONE (14:05)
[2018-08-26] MEDS ORDERED: fentaNYL 100 MCG/2 ML INJECTION (J3010) As Ordered ONE (14:05)
--- NOTE | 2018-08-26 14:41 | ROOR ---
Patient Name: Fidel Ellis Procedure Date: 08/26/2018 2:26 PM Date of : 1985 Age: 33 Room: [facility] Gender: Male Note Status: Finalized Procedure: Upper GI endoscopy Indications: Dyspepsia, Heartburn, Eructation Providers: David CAO MD Referring MD: KATIE YANES Requesting Provider: Medicines: Monitored Anesthesia Care Complications: No immediate complications. Procedure: Pre-Anesthesia Assessment: - The heart rate, respiratory rate, oxygen saturations, blood pressure, adequacy of pulmonary ventilation, and response to care were monitored throughout the procedure. The Endoscope was introduced through the mouth, and advanced to the second part of duodenum. The upper GI endoscopy was accomplished without difficulty. The patient tolerated the procedure well. Findings: Very small (insignificant) Hiatal Hernia. The esophagus was normal. The stomach was normal. The examined duodenum was normal. Impression: - Normal esophagus. - Normal stomach. - Very small (insignificant) Hiatal Hernia. - Normal examined duodenum. - No specimens collected. Recommendation: - Use Prevacid (lansoprazole) 30 mg PO daily. - Follow an antireflux regimen. - Observe patient's clinical course. David Cao MD David CAO MD 08/26/2018 2:41:22 PM This report has been signed electronically. Number of Addenda: 0 Note Initiated On: 08/26/2018 2:26 PM Estimated Blood Loss: Estimated blood loss: none.
[2018-08-26 15:10] VITALS: BP 134/74
== END 2018-08-26 15:24 | disposition home or self-care (01) ==
LOC: M OPP 13:17
PROVIDERS: ATTEND Internal Medicine Gastroenterology
DX: K44.9 Diaphragmatic hernia without obstruction or gangrene (principal); R10.13 Epigastric pain; R12 Heartburn; R14.2 Eructation
CPT/HCPCS: 43235; J3010

== ENCOUNTER → 2019-03-09 | Outpatient (CLI) | payer OTHER ==
[~2019-03-09] MED LIST changes: -NAPR-50 PO; +NAPR-837 PO; -NS 1,000 ML IV ONE
[2019-03-09 13:27] LABS: ALT/SGPT 24 U/L (12-78); BILIRUBIN,TOTAL 0.8 MG/DL (0.2-1.0); BLOOD UREA NITROGEN 11 MG/DL (7-18); CALCIUM LEVEL 9.5 MG/DL (8.5-10.1); CARBON DIOXIDE LEVEL 29 MEQ/L (21-32); CHLORIDE LEVEL 104 MEQ/L (98-107); CHOLESTEROL LEVEL 150 MG/DL (<200); CHOLESTEROL RISK RATIO 3.409 (<5); CREATININE FOR GFR 0.85 MG/DL (0.70-1.30); GLOMERULAR FILTRATION RATE > 60.0 (>60); GLUCOSE, FASTING 87 MG/DL (70-100); HDL CHOLESTEROL 44 MG/DL (>40); LDL CHOLESTEROL 86 MG/DL (<100); NON-HDL-C 106 MG/DL; POTASSIUM SERUM 4.3 MEQ/L (3.5-5.1); SODIUM LEVEL 141 MEQ/L (136-145); THYROID STIMULATING HORMONE 0.765 uIU/ML (0.358-3.740); TRIGLYCERIDES LEVEL 99 MG/DL (<150)
[2019-03-09 13:56] LABS: HIV 1&2 SCREEN CENTAUR NEGATIVE (NEGATIVE)
[2019-03-09 14:08] LABS: CHLAMYDIA DNA AMPLIFICATION NEGATIVE (NEGATIVE); GC DNA AMPLIFICATION NEGATIVE (NEGATIVE)
== END ==
LOC: M LAB 11:50
PROVIDERS: ATTEND Nurse Practitioner Family
DX: E78.5 Hyperlipidemia, unspecified (principal); Z20.2 Contact with and (suspected) exposure to infections with a predominantly sexual mode of transmission

== ENCOUNTER 2019-04-26 15:19 | Emergency (ER) | payer OTHER ==
[~2019-04-26] VITALS: Ht 177.8 cm; Wt 93.7 kg
[2019-04-26] MEDS ORDERED: ADACEL/BOOSTRIX VACCINE (DIPHTH/PERTUSS/ACELL/TETANUS)0.5ML SYR (90715) IM ONE (16:00)
[2019-04-26 16:18] VITALS: BP 109/52
== END 2019-04-26 16:29 | disposition home or self-care (01) ==
LOC: M ED 15:19
DX: S61.210A Laceration without foreign body of right index finger without damage to nail, initial encounter (principal); W26.8XXA Contact with other sharp object(s), not elsewhere classified, initial encounter; Y92.69 Other specified industrial and construction area as the place of occurrence of the external cause; Z88.8 Allergy status to other drugs, medicaments and biological substances

== ENCOUNTER 2019-08-29 16:39 | Emergency (ER) | payer OTHER, SELFPAY ==
[~2019-08-29] VITALS: Ht 177.8 cm; Wt 97.9 kg
[2019-08-29 16:40] VITALS: BP 128/65
== END 2019-08-29 17:39 | disposition home or self-care (01) ==
LOC: M ED 16:39
DX: J02.9 Acute pharyngitis, unspecified (principal); R05 Cough; G47.30 Sleep apnea, unspecified; F90.9 Attention-deficit hyperactivity disorder, unspecified type; K21.9 Gastro-esophageal reflux disease without esophagitis; Z88.6 Allergy status to analgesic agent

== ENCOUNTER 2020-08-27 14:15 | Emergency (ER) | payer SELFPAY ==
[~2020-08-27] VITALS: Ht 177.8 cm; Wt 109.0 kg
[~2020-08-27 14:15] MED LIST changes: +CYCL-707 PO; -CYCL10TA PO; -SIME40TA PO; +SIME80CH6 PO
[2020-08-27] MEDS ORDERED: GLUCAGON INJ 1MG VIAL IM STA (14:47)
--- NOTE | 2020-08-27 15:11 | REP ---
INDICATION: ? chicken caught in throat. COMPARISON: None. TECHNIQUE: AP and lateral soft tissue neck radiographs. FINDINGS: Osseous structures are intact and normal. Prevertebral and paravertebral soft tissues are normal. No subcutaneous emphysema or foreign body. IMPRESSION: Normal examination. No subcutaneous emphysema or foreign body identified. <Electronically signed by Franklin Gray > 08/27/20 [id number]
--- NOTE | 2020-08-27 15:40 | REP ---
INDICATION: choked on chicken/chest pain COMPARISON: 06/02/2018 TECHNIQUE: PA and lateral. FINDINGS: The mediastinum and cardiac silhouette are normal. The lung stevenson are clear and without acute consolidation, effusion, or pneumothorax. The skeletal structures are intact and normal. IMPRESSION: No acute cardiopulmonary process. <Electronically signed by Franklin Gray > 08/27/20 [id number]
[2020-08-27 16:53] VITALS: BP 139/83
== END 2020-08-27 16:55 | disposition home or self-care (01) ==
LOC: M ED 14:15
DX: R09.89 Other specified symptoms and signs involving the circulatory and respiratory systems (principal); F33.9 Major depressive disorder, recurrent, unspecified; F41.9 Anxiety disorder, unspecified; F90.9 Attention-deficit hyperactivity disorder, unspecified type; G47.33 Obstructive sleep apnea (adult) (pediatric); K21.9 Gastro-esophageal reflux disease without esophagitis; Z88.8 Allergy status to other drugs, medicaments and biological substances
CPT/HCPCS: 70360; 71046; 96372; 99283; J1610

== ENCOUNTER 2021-03-29 22:36 | Emergency (ER) | payer OTHER, SELFPAY ==
[~2021-03-29] VITALS: Ht 177.8 cm; Wt 99.9 kg
[2021-03-30] MEDS ORDERED: TRUVADA 200MG/300MG TABLET PO SCH
[2021-03-30] MEDS ORDERED: RALTEGRAVIR 400 MG TAB (ISENTRESS) PO SCH
[2021-03-30 07:15] LABS: BASO % 0.5 % (0.0-1.0); EOS # 0.5 10^3/uL (0.0-0.5); EOS % 6.4 % (0.0-3.0); HEMATOCRIT 42.1 % (42.0-52.0); HEMOGLOBIN 13.9 g/dl (13.5-17.5); LYMPH # 1.5 10^3/uL (1.5-5.0); LYMPH % 19.7 % (24.0-44.0); MEAN CORPUSCULAR HEMOGLOBIN 27.8 pg (27.0-33.0); MEAN CORPUSCULAR VOLUME 84.2 fl (80.0-96.0); MONO # 0.8 10^3/uL (0.0-0.8); MONO % 10.7 % (2.0-8.0); NEUTROPHILS # 4.9 10^3/uL (1.5-8.5); NEUTROPHILS % 62.4 % (36.0-66.0); PLATELET COUNT, AUTOMATED 271 10^3/uL (150-450); WHITE BLOOD COUNT 7.8 10^3/uL (4.0-10.0)
[2021-03-30 07:38] LABS: ALBUMIN 4.1 GM/DL (3.2-5.2); ALT/SGPT 27 U/L (12-78); BILIRUBIN,TOTAL 0.4 MG/DL (0.2-1.0); BLOOD UREA NITROGEN 10 MG/DL (7-18); CALCIUM LEVEL 9.7 MG/DL (8.5-10.1); CARBON DIOXIDE LEVEL 31 MEQ/L (21-32); CHLORIDE LEVEL 106 MEQ/L (98-107); GLOMERULAR FILTRATION RATE > 60.0 (>60); GLUCOSE, FASTING 102 MG/DL (70-100); POTASSIUM SERUM 4.6 MEQ/L (3.5-5.1); SODIUM LEVEL 139 MEQ/L (136-145); TOTAL PROTEIN 7.6 GM/DL (6.4-8.2)
[2021-03-30] MEDS ORDERED: HEPATITIS B IMMUNE GLOBULIN 5ML INJ (J1571) IM ONE (09:10)
[2021-03-30] MEDS ORDERED: EXPOSURE KIT-ADULT 7 DAY SUPPLY PO ONE (09:10)
[2021-03-30] MEDS ORDERED: EMTR1TAB16 PO (09:27)
[2021-03-30] MEDS ORDERED: RALT40TA PO (09:27)
[2021-03-30] MEDS ORDERED: ONDA4TAB6 PO (09:34)
[2021-03-30 09:47] VITALS: BP 126/59
[2021-03-30] MEDS ORDERED: TRUVADA 200MG/300MG TABLET PO ONE (10:05)
[2021-03-30] MEDS ORDERED: RALTEGRAVIR 400 MG TAB (ISENTRESS) PO ONE (10:05)
[2021-03-30 10:35] LABS: HEPATITIS B SURFACE ANTIBODY NEGATIVE (POSITIVE)
[2021-03-30 10:46] LABS: HEPATITIS B SURFACE ANTIGEN NEGATIVE (NEGATIVE)
[2021-03-30 11:15] LABS: HIV 1&2 SCREEN CENTAUR NEGATIVE (NEGATIVE)
== END 2021-03-30 11:09 | disposition home or self-care (01) ==
LOC: M ED 22:36
DX: S51.831A Puncture wound without foreign body of right forearm, initial encounter (principal); Z77.21 Contact with and (suspected) exposure to potentially hazardous body fluids; W46.0XXA Contact with hypodermic needle, initial encounter; Y92.89 Other specified places as the place of occurrence of the external cause; Y93.9 Activity, unspecified; Y99.0 Civilian activity done for income or pay; Z79.899 Other long term (current) drug therapy; Z88.6 Allergy status to analgesic agent

== ENCOUNTER → 2021-04-26 | Outpatient (CLI) | payer OTHER ==
[~2021-04-26] MED LIST changes: +EMTR1TAB16 PO; +ONDA4TAB6 PO; +RALT40TA PO
[2021-04-26 14:44] LABS: HEPATITIS B SURFACE ANTIBODY POSITIVE (POSITIVE); HEPATITIS B SURFACE ANTIGEN NEGATIVE (NEGATIVE); HEPATITIS C VIRUS ABY INDEX < 0.0 INDEX (<0.8); HIV 1&2 SCREEN CENTAUR NEGATIVE (NEGATIVE)
== END ==
LOC: M PLALAB 09:33
PROVIDERS: ATTEND Physician Assistant Medical
DX: Z77.21 Contact with and (suspected) exposure to potentially hazardous body fluids (principal); W27.3XXA Contact with needle (sewing), initial encounter; Y92.9 Unspecified place or not applicable

== ENCOUNTER → 2021-05-30 | Outpatient (CLI) | payer OTHER ==
[2021-05-30 18:19] LABS: ALBUMIN 3.9 GM/DL (3.2-5.2); ALT/SGPT 25 U/L (12-78); BILIRUBIN,TOTAL 0.3 MG/DL (0.2-1.0); BLOOD UREA NITROGEN 13 MG/DL (7-18); CALCIUM LEVEL 9.9 MG/DL (8.5-10.1); CARBON DIOXIDE LEVEL 31 MEQ/L (21-32); CHLORIDE LEVEL 105 MEQ/L (98-107); CREATININE FOR GFR 0.81 MG/DL (0.70-1.30); GLOMERULAR FILTRATION RATE > 60.0 (>60); GLUCOSE, FASTING 87 MG/DL (70-100); POTASSIUM SERUM 4.2 MEQ/L (3.5-5.1); SODIUM LEVEL 141 MEQ/L (136-145); TOTAL PROTEIN 7.3 GM/DL (6.4-8.2)
[2021-05-30 19:10] LABS: HIV 1&2 SCREEN CENTAUR NEGATIVE (NEGATIVE)
== END ==
LOC: M PLALAB 15:29
PROVIDERS: ATTEND Physician Assistant Medical
DX: S41.141A Puncture wound with foreign body of right upper arm, initial encounter (principal); X58.XXXA Exposure to other specified factors, initial encounter; Y92.9 Unspecified place or not applicable

== ENCOUNTER → 2021-09-27 | Outpatient (CLI) | payer OTHER ==
[2021-09-27 15:26] LABS: BASO % 0.4 % (0.0-1.0); EOS # 0.3 10^3/uL (0.0-0.5); HEMATOCRIT 41.4 % (42.0-52.0); HEMOGLOBIN 13.6 g/dl (13.5-17.5); LYMPH # 1.7 10^3/uL (1.5-5.0); LYMPH % 18.6 % (24.0-44.0); MEAN CORPUSCULAR HGB CONC 32.9 g/dl (32.0-36.5); MEAN CORPUSCULAR VOLUME 82.3 fl (80.0-96.0); MONO % 10.6 % (2.0-8.0); NEUTROPHILS # 6.1 10^3/uL (1.5-8.5); NEUTROPHILS % 67.1 % (36.0-66.0); PLATELET COUNT, AUTOMATED 259 10^3/uL (150-450); RED BLOOD COUNT 5.03 10^6/uL (4.30-6.10); WHITE BLOOD COUNT 9.1 10^3/uL (4.0-10.0)
[2021-09-27 15:51] LABS: HEMOGLOBIN A1c 5.5 %
[2021-09-27 15:53] LABS: ALBUMIN 3.9 GM/DL (3.2-5.2); ALT/SGPT 34 U/L (12-78); BILIRUBIN,TOTAL 0.4 MG/DL (0.2-1.0); BLOOD UREA NITROGEN 14 MG/DL (7-18); CALCIUM LEVEL 9.3 MG/DL (8.5-10.1); CARBON DIOXIDE LEVEL 30 MEQ/L (21-32); CHLORIDE LEVEL 104 MEQ/L (98-107); CHOLESTEROL LEVEL 154 MG/DL (<200); CREATININE FOR GFR 0.82 MG/DL (0.70-1.30); GLOMERULAR FILTRATION RATE > 60.0 (>60); GLUCOSE, FASTING 81 MG/DL (70-100); HDL CHOLESTEROL 35 MG/DL (>40); LDL CHOLESTEROL 93 MG/DL (<100); NON-HDL-C 119 MG/DL; POTASSIUM SERUM 4.2 MEQ/L (3.5-5.1); SODIUM LEVEL 139 MEQ/L (136-145); TOTAL PROTEIN 6.9 GM/DL (6.4-8.2); TRIGLYCERIDES LEVEL 132 MG/DL (<150)
[2021-09-27 16:39] LABS: HIV 1&2 SCREEN CENTAUR NEGATIVE (NEGATIVE)
== END ==
LOC: M PLALAB 12:51
PROVIDERS: ATTEND Physician Assistant Medical
DX: S41.141A Puncture wound with foreign body of right upper arm, initial encounter (principal); S01.03XD Puncture wound without foreign body of scalp, subsequent encounter; Z13.1 Encounter for screening for diabetes mellitus; Z13.220 Encounter for screening for lipoid disorders

== ENCOUNTER 2022-08-19 13:22 | Emergency (ER) | payer OTHER ==
[~2022-08-19] VITALS: Ht 177.8 cm; Wt 97.0 kg
[2022-08-19 13:23] VITALS: BP 134/72
== END 2022-08-19 15:05 | disposition home or self-care (01) ==
LOC: M ED 13:22
DX: M75.21 Bicipital tendinitis, right shoulder (principal); W00.0XXA Fall on same level due to ice and snow, initial encounter; G47.33 Obstructive sleep apnea (adult) (pediatric); K21.9 Gastro-esophageal reflux disease without esophagitis; M54.50 Low back pain, unspecified; F32.A Depression, unspecified; F90.9 Attention-deficit hyperactivity disorder, unspecified type; Z88.6 Allergy status to analgesic agent; Y99.0 Civilian activity done for income or pay

== ENCOUNTER 2022-09-29 20:04 | Emergency (ER) | payer OTHER ==
[~2022-09-29] VITALS: Ht 177.8 cm; Wt 97.7 kg
[2022-09-29] MEDS ORDERED: NS 1,000 ML IV ONE (20:45)
[2022-09-29] MEDS ORDERED: GI COCKTAIL 50ML BTL(HYOSCYAMINE/MAALOX/LIDOCAINE VISCOUS)(1:3:1) PO ONE (20:45)
[2022-09-29 21:11] LABS: BASO % 0.4 % (0.0-1.0); EOS # 0.2 10^3/uL (0.0-0.5); EOS % 1.6 % (0.0-3.0); HEMATOCRIT 42.3 % (42.0-52.0); HEMOGLOBIN 13.7 g/dl (13.5-17.5); LYMPH # 1.5 10^3/uL (1.5-5.0); LYMPH % 14.5 % (24.0-44.0); MEAN CORPUSCULAR HEMOGLOBIN 27.1 pg (27.0-33.0); MEAN CORPUSCULAR HGB CONC 32.4 g/dl (32.0-36.5); MEAN CORPUSCULAR VOLUME 83.6 fl (80.0-96.0); MONO # 0.9 10^3/uL (0.0-0.8); MONO % 8.4 % (2.0-8.0); NEUTROPHILS # 7.8 10^3/uL (1.5-8.5); NEUTROPHILS % 74.9 % (36.0-66.0); PLATELET COUNT, AUTOMATED 253 10^3/uL (150-450); RED BLOOD COUNT 5.06 10^6/uL (4.30-6.10); WHITE BLOOD COUNT 10.5 10^3/uL (4.0-10.0)
[2022-09-29 21:31] LABS: LIPASE 43 U/L (12-53)
[2022-09-29 21:32] LABS: CK-MB VALUE MASS 2.2 NG/ML (<3.6)
[2022-09-29 21:34] LABS: ALKALINE PHOSPHATASE 89 U/L (46-116); ALT/SGPT 22 U/L (7.0-40); AST/SGOT 19 U/L (<34); BILIRUBIN,DIRECT 0.2 MG/DL (<0.4); BILIRUBIN,TOTAL 0.6 MG/DL (0.3-1.2); BLOOD UREA NITROGEN 11 MG/DL (9-23); CALCIUM LEVEL 9.6 MG/DL (8.5-10.1); CARBON DIOXIDE LEVEL 31 MMOL/L (20-31); CHLORIDE LEVEL 105 MMOL/L (98-107); CHOLESTEROL LEVEL 151 MG/DL (<200); CHOLESTEROL RISK RATIO 3.56 (<5); CPK CREATINE PHOSPHOKINASE 156 U/L (46-171); CREATININE FOR GFR 0.73 MG/DL (0.70-1.30); GLOMERULAR FILTRATION RATE > 60.0 (>60); GLUCOSE, FASTING 109 MG/DL (60-100); HDL CHOLESTEROL 42.4 MG/DL (>40); LDL CHOLESTEROL 84.2 MG/DL (<100); MB/CK RELATIVE INDEX 1.41 (< OR =4); NON-HDL-C 108.6 MG/DL; POTASSIUM SERUM 3.7 MMOL/L (3.5-5.1); SODIUM LEVEL 141 MMOL/L (136-145); TRIGLYCERIDES LEVEL 122 MG/DL (<150)
[2022-09-29 21:35] LABS: THYROID STIMULATING HORMONE 1.768 uIU/ML (0.55-4.78)
[2022-09-29] MEDS ORDERED: OMEP40CA4 PO (22:26)
[2022-09-29 22:33] LABS: CK-MB VALUE MASS 1.9 NG/ML (<3.6)
[2022-09-29 22:34] LABS: CPK CREATINE PHOSPHOKINASE 127 U/L (46-171); MB/CK RELATIVE INDEX 1.49 (< OR =4)
[2022-09-29 23:04] VITALS: BP 142/75
== END 2022-09-29 23:06 | disposition home or self-care (01) ==
LOC: M ED 20:04
DX: R07.89 Other chest pain (principal); K30 Functional dyspepsia; K21.9 Gastro-esophageal reflux disease without esophagitis

== ENCOUNTER → 2022-10-04 | Outpatient (CLI) | payer OTHER ==
[~2022-10-04] MED LIST changes: +OMEP40CA4 PO
[2022-10-04 15:34] LABS: HEMOGLOBIN A1c 5.5 % (4.0-6.0)
[2022-10-04 15:44] LABS: CHOLESTEROL RISK RATIO 4.26 (<5); HDL CHOLESTEROL 37.5 MG/DL (>40); LDL CHOLESTEROL 98.3 MG/DL (<100); NON-HDL-C 122.5 MG/DL
== END ==
LOC: M PLALAB 12:29
PROVIDERS: ATTEND Physician Assistant Medical
DX: Z13.1 Encounter for screening for diabetes mellitus (principal); Z13.220 Encounter for screening for lipoid disorders

== ENCOUNTER → 2022-11-01 | Outpatient (REF) | payer OTHER | LOC: M SFHCPLAZ 14:01 | PROVIDERS: ATTEND Physician Assistant Medical | DX: Z53.9 Procedure and treatment not carried out, unspecified reason (principal) ==

== ENCOUNTER → 2022-11-03 | Outpatient (REF) | payer OTHER | LOC: M SFHCPLAZ 13:58 | PROVIDERS: ATTEND Physician Assistant Medical | DX: K21.9 Gastro-esophageal reflux disease without esophagitis (principal) ==

== ENCOUNTER → 2022-11-06 | Outpatient (REF) | payer OTHER | LOC: M SFHCPLAZ 12:15 | PROVIDERS: ATTEND Physician Assistant Medical | DX: K21.9 Gastro-esophageal reflux disease without esophagitis (principal); Z53.9 Procedure and treatment not carried out, unspecified reason ==

== ENCOUNTER 2022-11-17 15:40 | Emergency (ER) | payer OTHER ==
[~2022-11-17] VITALS: Ht 177.8 cm; Wt 95.5 kg
[2022-11-17 16:30] LABS: BASO % 0.4 % (0.0-1.0); EOS # 0.2 10^3/uL (0.0-0.5); EOS % 2.5 % (0.0-3.0); HEMATOCRIT 37.7 % (42.0-52.0); HEMOGLOBIN 12.6 g/dl (13.5-17.5); LYMPH # 1.2 10^3/uL (1.5-5.0); LYMPH % 15.8 % (24.0-44.0); MEAN CORPUSCULAR HEMOGLOBIN 27.9 pg (27.0-33.0); MEAN CORPUSCULAR HGB CONC 33.4 g/dl (32.0-36.5); MEAN CORPUSCULAR VOLUME 83.4 fl (80.0-96.0); MONO # 0.8 10^3/uL (0.0-0.8); MONO % 9.9 % (2.0-8.0); NEUTROPHILS # 5.4 10^3/uL (1.5-8.5); NEUTROPHILS % 71.1 % (36.0-66.0); PLATELET COUNT, AUTOMATED 246 10^3/uL (150-450); RED BLOOD COUNT 4.52 10^6/uL (4.30-6.10); WHITE BLOOD COUNT 7.6 10^3/uL (4.0-10.0)
[2022-11-17 16:55] LABS: CPK CREATINE PHOSPHOKINASE 136 U/L (46-171)
[2022-11-17 16:56] LABS: ALBUMIN 3.7 G/DL (3.2-5.2); ALKALINE PHOSPHATASE 78 U/L (46-116); ALT/SGPT 27 U/L (7.0-40); AST/SGOT 22 U/L (<34); BILIRUBIN,DIRECT 0.1 MG/DL (<0.4); BILIRUBIN,TOTAL 0.4 MG/DL (0.3-1.2); BLOOD UREA NITROGEN 13 MG/DL (9-23); CALCIUM LEVEL 9.3 MG/DL (8.5-10.1); CARBON DIOXIDE LEVEL 30 MMOL/L (20-31); CHLORIDE LEVEL 107 MMOL/L (98-107); CREATININE FOR GFR 0.93 MG/DL (0.70-1.30); GLOMERULAR FILTRATION RATE > 60.0 (>60); GLUCOSE, FASTING 89 MG/DL (60-100); POTASSIUM SERUM 4.3 MMOL/L (3.5-5.1); SODIUM LEVEL 142 MMOL/L (136-145); TOTAL PROTEIN 6.2 G/DL (5.7-8.2)
[2022-11-17 17:17] LABS: CK-MB VALUE MASS 2.3 NG/ML (<3.6); MB/CK RELATIVE INDEX 1.69 (< OR =4)
[2022-11-17 18:07] LABS: CK-MB VALUE MASS 1.7 NG/ML (<3.6)
[2022-11-17 18:08] LABS: CPK CREATINE PHOSPHOKINASE 130 U/L (46-171)
[2022-11-17 18:34] VITALS: BP 110/68
== END 2022-11-17 18:52 | disposition home or self-care (01) ==
LOC: M ED 15:40 → EDBD 15:40 → M ED 18:52
DX: R07.9 Chest pain, unspecified (principal); K21.9 Gastro-esophageal reflux disease without esophagitis; F90.9 Attention-deficit hyperactivity disorder, unspecified type; G47.33 Obstructive sleep apnea (adult) (pediatric); Z88.6 Allergy status to analgesic agent; Z79.83 Long term (current) use of bisphosphonates; Z79.899 Other long term (current) drug therapy

== ENCOUNTER 2023-05-13 14:35 | Emergency (ER) | payer OTHER ==
[~2023-05-13] VITALS: Ht 177.8 cm; Wt 98.2 kg
[2023-05-13] MEDS ORDERED: VALA1TAB5 PO (19:39)
[2023-05-13] MEDS ORDERED: [UNRECOGNIZED DRUG - CODE] TOP (19:39)
[2023-05-13 19:52] VITALS: BP 131/73; TEMP 98.1; O2SAT 98
== END 2023-05-13 19:53 | disposition home or self-care (01) ==
LOC: M ED 14:35
DX: L98.9 Disorder of the skin and subcutaneous tissue, unspecified (principal); B02.8 Zoster with other complications; K21.9 Gastro-esophageal reflux disease without esophagitis; Z88.8 Allergy status to other drugs, medicaments and biological substances

== ENCOUNTER 2023-05-18 17:25 | Emergency (ER) | payer OTHER ==
[~2023-05-18] VITALS: Ht 177.8 cm; Wt 95.5 kg
[~2023-05-18 17:25] MED LIST changes: +VALA1TAB5 PO; +[UNRECOGNIZED DRUG - CODE] TOP
[2023-05-18] MEDS ORDERED: VALA1TAB5 PO (17:38)
[2023-05-18] MEDS ORDERED: dexAMETHasone 20MG/5ML VIAL IV ONE (19:00)
[2023-05-18] MEDS ORDERED: NS 1,000 ML IV ONE (19:00)
[2023-05-18] MEDS ORDERED: AMPICILLIN SOD/SULBACTAM SOD 3 GM in D5W MINI-BAG PLUS 100 ML IV ONE (19:05)
[2023-05-18] MEDS ORDERED: ISOVUE-370 76% 100ML VIAL As Ordered ONE (20:02)
[2023-05-18 20:11] LABS: BASO % 0.2 % (0.0-1.0); EOS # 0.1 10^3/uL (0.0-0.5); EOS % 1.3 % (0.0-3.0); HEMATOCRIT 41.3 % (42.0-52.0); HEMOGLOBIN 13.8 g/dl (13.5-17.5); LYMPH # 1.5 10^3/uL (1.5-5.0); LYMPH % 13.6 % (24.0-44.0); MEAN CORPUSCULAR HEMOGLOBIN 27.6 pg (27.0-33.0); MEAN CORPUSCULAR HGB CONC 33.4 g/dl (32.0-36.5); MEAN CORPUSCULAR VOLUME 82.6 fl (80.0-96.0); MONO # 1.1 10^3/uL (0.0-0.8); MONO % 9.9 % (2.0-8.0); NEUTROPHILS # 8.1 10^3/uL (1.5-8.5); NEUTROPHILS % 74.7 % (36.0-66.0); PLATELET COUNT, AUTOMATED 245 10^3/uL (150-450); WHITE BLOOD COUNT 10.8 10^3/uL (4.0-10.0)
[2023-05-18] MEDS ORDERED: AMOX875T2 PO (21:12)
[2023-05-18 21:50] VITALS: BP 148/76; TEMP 98.1; O2SAT 98
== END 2023-05-18 21:57 | disposition home or self-care (01) ==
LOC: M ED 17:25
DX: L03.211 Cellulitis of face (principal); B02.8 Zoster with other complications; K02.9 Dental caries, unspecified; Z88.8 Allergy status to other drugs, medicaments and biological substances
CPT/HCPCS: 70491; 80047; 85025; 86140; 87040; 87641; 96365; 96366; 96375; 99284; J0295; J1100; Q9967

== ENCOUNTER 2023-05-20 12:04 | Emergency (ER) | payer OTHER ==
[~2023-05-20] VITALS: Ht 177.8 cm; Wt 97.0 kg
[~2023-05-20 12:04] MED LIST changes: +AMOX875T2 PO
[2023-05-20 16:50] VITALS: BP 133/75; TEMP 98.2; O2SAT 97
== END 2023-05-20 17:27 | disposition home or self-care (01) ==
LOC: M ED 12:04
DX: K12.2 Cellulitis and abscess of mouth (principal); G47.33 Obstructive sleep apnea (adult) (pediatric); M54.50 Low back pain, unspecified; K21.9 Gastro-esophageal reflux disease without esophagitis; Z88.6 Allergy status to analgesic agent; Z79.2 Long term (current) use of antibiotics; Z79.899 Other long term (current) drug therapy

== ENCOUNTER → 2023-10-04 | Outpatient (CLI) | payer OTHER ==
[2023-10-04 13:23] LABS: HEMOGLOBIN A1c 5.3 % (4.0-6.0)
[2023-10-04 13:28] LABS: BASO % 0.5 % (0.0-1.0); EOS # 0.3 10^3/uL (0.0-0.5); EOS % 3.8 % (0.0-3.0); HEMATOCRIT 41.4 % (42.0-52.0); HEMOGLOBIN 13.7 g/dl (13.5-17.5); LYMPH # 1.6 10^3/uL (1.5-5.0); LYMPH % 20.7 % (24.0-44.0); MEAN CORPUSCULAR HEMOGLOBIN 27.9 pg (27.0-33.0); MEAN CORPUSCULAR HGB CONC 33.1 g/dl (32.0-36.5); MEAN CORPUSCULAR VOLUME 84.3 fl (80.0-96.0); MONO # 0.8 10^3/uL (0.0-0.8); MONO % 11.1 % (2.0-8.0); NEUTROPHILS # 4.8 10^3/uL (1.5-8.5); NEUTROPHILS % 63.6 % (36.0-66.0); PLATELET COUNT, AUTOMATED 243 10^3/uL (150-450); RED BLOOD COUNT 4.91 10^6/uL (4.30-6.10); WHITE BLOOD COUNT 7.6 10^3/uL (4.0-10.0)
[2023-10-04 14:05] LABS: ALBUMIN 3.9 G/DL (3.2-5.2); ALKALINE PHOSPHATASE 89 U/L (46-116); ALT/SGPT 53 U/L (7.0-40); AST/SGOT 23 U/L (<34); BILIRUBIN,TOTAL 0.4 MG/DL (0.3-1.2); BLOOD UREA NITROGEN 14 MG/DL (9-23); CALCIUM LEVEL 10.1 MG/DL (8.5-10.1); CARBON DIOXIDE LEVEL 31 MMOL/L (20-31); CHLORIDE LEVEL 104 MMOL/L (98-107); CHOLESTEROL LEVEL 158 MG/DL (<200); CHOLESTEROL RISK RATIO 3.82 (<5); CREATININE FOR GFR 0.79 MG/DL (0.70-1.30); FREE T4 1.04 NG/DL (0.89-1.76); GLOMERULAR FILTRATION RATE > 60.0 (>60); GLUCOSE, FASTING 101 MG/DL (60-100); HDL CHOLESTEROL 41.3 MG/DL (>40); LDL CHOLESTEROL 91.7 MG/DL (<100); NON-HDL-C 116.7 MG/DL; POTASSIUM SERUM 4.4 MMOL/L (3.5-5.1); SODIUM LEVEL 139 MMOL/L (136-145); TOTAL PROTEIN 6.7 G/DL (5.7-8.2); TRIGLYCERIDES LEVEL 125 MG/DL (<150)
== END ==
LOC: M PLALAB 09:13
PROVIDERS: ATTEND Physician Assistant Medical
DX: J30.1 Allergic rhinitis due to pollen (principal); Z13.220 Encounter for screening for lipoid disorders; Z13.1 Encounter for screening for diabetes mellitus; F32.9 Major depressive disorder, single episode, unspecified

== ENCOUNTER → 2024-10-21 | Outpatient (CLI) | payer OTHER ==
[~2024-10-21] MED LIST changes: +ONDA-282 PO; -ONDA4TAB6 PO
[2024-10-21 16:25] LABS: BASO # 0.1 10^3/uL (0.0-0.2); BASO % 0.8 % (0.0-1.0); EOS # 0.1 10^3/uL (0.0-0.5); HEMATOCRIT 44.3 % (42.0-52.0); HEMOGLOBIN 14.5 g/dl (13.5-17.5); LYMPH # 1.4 10^3/uL (1.5-5.0); LYMPH % 22.3 % (24.0-44.0); MEAN CORPUSCULAR HEMOGLOBIN 27.9 pg (27.0-33.0); MEAN CORPUSCULAR HGB CONC 32.7 g/dl (32.0-36.5); MEAN CORPUSCULAR VOLUME 85.2 fl (80.0-96.0); MONO # 0.7 10^3/uL (0.0-0.8); MONO % 10.4 % (2.0-8.0); NEUTROPHILS # 4.1 10^3/uL (1.5-8.5); NEUTROPHILS % 64.3 % (36.0-66.0); PLATELET COUNT, AUTOMATED 264 10^3/uL (150-450); WHITE BLOOD COUNT 6.4 10^3/uL (4.0-10.0)
[2024-10-21 16:42] LABS: HEMOGLOBIN A1c 5.1 % (4.0-6.0)
[2024-10-21 16:53] LABS: ALBUMIN 4.1 G/DL (3.2-5.2); ALKALINE PHOSPHATASE 67 U/L (40-129); ALT/SGPT 30 U/L (7.0-40); AST/SGOT 18 U/L (<34); BILIRUBIN,TOTAL 0.8 MG/DL (0.3-1.2); BLOOD UREA NITROGEN 10 MG/DL (9-23); CALCIUM LEVEL 9.7 MG/DL (8.5-10.1); CARBON DIOXIDE LEVEL 33 MMOL/L (20-31); CHLORIDE LEVEL 103 MMOL/L (98-107); CHOLESTEROL LEVEL 181 MG/DL (<200); CHOLESTEROL RISK RATIO 3.99 (<5); CREATININE FOR GFR 0.76 MG/DL (0.70-1.30); GLOMERULAR FILTRATION RATE > 90.0 (>60); GLUCOSE, FASTING 76 MG/DL (60-100); HDL CHOLESTEROL 45.3 MG/DL (>40); LDL CHOLESTEROL 112.7 MG/DL (<100); NON-HDL-C 135.7 MG/DL; POTASSIUM SERUM 4.3 MMOL/L (3.5-5.1); PSA SCREENING 0.37 NG/ML (< 4.00); SODIUM LEVEL 143 MMOL/L (136-145); TRIGLYCERIDES LEVEL 115 MG/DL (<150)
== END ==
LOC: M PLALAB 14:03
PROVIDERS: ATTEND Physician Assistant Medical
DX: G47.33 Obstructive sleep apnea (adult) (pediatric) (principal)